=== PATIENT | female | born 1945 | race Caucasian/White ===

== ENCOUNTER 2021-09-02 08:39 | Outpatient (CLI) | payer MEDICARE | END 2021-09-02 08:40 | disposition home or self-care (01) | LOC: CSHWCC 08:39 | PROVIDERS: ATTEND Nurse Practitioner Family | DX: S81.802D Unspecified open wound, left lower leg, subsequent encounter (principal); R60.0 Localized edema | CPT/HCPCS: 11042; 99203; G0463 ==

== ENCOUNTER 2021-09-06 10:59 | Outpatient (CLI) | payer MEDICARE | END 2021-09-06 11:00 | disposition home or self-care (01) | LOC: CSHMAMMO 10:59 | PROVIDERS: ATTEND Internal Medicine | DX: Z12.31 Encounter for screening mammogram for malignant neoplasm of breast (principal); L97.322 Non-pressure chronic ulcer of left ankle with fat layer exposed; Z91.89 Other specified personal risk factors, not elsewhere classified | CPT/HCPCS: 77063; 77067; 93922 ==

== ENCOUNTER 2021-09-10 08:28 | Outpatient (CLI) | payer MEDICARE | END 2021-09-10 08:29 | disposition home or self-care (01) | LOC: CSHWCC 08:28 | PROVIDERS: ATTEND Nurse Practitioner Family | DX: S81.802D Unspecified open wound, left lower leg, subsequent encounter (principal); R60.0 Localized edema | CPT/HCPCS: 29581; 97139; G0463; 99213 ==

== ENCOUNTER 2021-09-17 12:49 | Outpatient (CLI) | payer MEDICARE | END 2021-09-17 12:50 | disposition home or self-care (01) | LOC: CSHWCC 12:49 | PROVIDERS: ATTEND Nurse Practitioner Family | DX: S81.802D Unspecified open wound, left lower leg, subsequent encounter (principal); R60.0 Localized edema | CPT/HCPCS: 29581; 97607; 99212; G0463 ==

== ENCOUNTER 2021-09-24 12:50 | Outpatient (CLI) | payer MEDICARE | END 2021-09-24 12:51 | disposition home or self-care (01) | LOC: CSHWCC 12:50 | PROVIDERS: ATTEND Nurse Practitioner Family | DX: S81.802D Unspecified open wound, left lower leg, subsequent encounter (principal); R60.0 Localized edema | CPT/HCPCS: 99212; G0463 ==

== ENCOUNTER 2021-10-01 10:59 | Outpatient (CLI) | payer MEDICARE | END 2021-10-01 11:00 | disposition home or self-care (01) | LOC: CSHWCC 10:59 | PROVIDERS: ATTEND Nurse Practitioner Family | DX: S81.802D Unspecified open wound, left lower leg, subsequent encounter (principal); R60.0 Localized edema | CPT/HCPCS: 97139; G0463; 99213 ==

== ENCOUNTER 2021-10-04 10:58 | Outpatient (CLI) | payer MEDICARE | END 2021-10-04 10:59 | disposition home or self-care (01) | LOC: CSHWCC 10:58 | PROVIDERS: ATTEND Nurse Practitioner Family | DX: S81.802D Unspecified open wound, left lower leg, subsequent encounter (principal); R60.0 Localized edema ==

== ENCOUNTER 2021-10-08 09:33 | Outpatient (CLI) | payer MEDICARE | END 2021-10-08 09:34 | disposition home or self-care (01) | LOC: CSHWCC 09:33 | PROVIDERS: ATTEND Nurse Practitioner Family | DX: S81.802D Unspecified open wound, left lower leg, subsequent encounter (principal); R60.0 Localized edema | CPT/HCPCS: 11042 ==

== ENCOUNTER 2021-10-16 11:22 | Outpatient (CLI) | payer MEDICARE | END 2021-10-16 11:23 | disposition home or self-care (01) | LOC: CSHWCC 11:22 | PROVIDERS: ATTEND Nurse Practitioner Family | DX: S81.802A Unspecified open wound, left lower leg, initial encounter (principal); R60.0 Localized edema; L97.829 Non-pressure chronic ulcer of other part of left lower leg with unspecified severity | CPT/HCPCS: 11300; 87070; 87077; 87186; 87205; 97139; G0463; 88305; 88312; 88342; 99212 ==

== ENCOUNTER 2021-10-21 10:41 | Outpatient (CLI) | payer MEDICARE | END 2021-10-21 10:42 | disposition home or self-care (01) | LOC: CSHWCC 10:41 | PROVIDERS: ATTEND Nurse Practitioner Family | DX: S81.802D Unspecified open wound, left lower leg, subsequent encounter (principal); R60.0 Localized edema ==

== ENCOUNTER 2021-10-24 08:58 | Outpatient (CLI) | payer MEDICARE | END 2021-10-24 08:59 | disposition home or self-care (01) | LOC: CSHWCC 08:58 | PROVIDERS: ATTEND Nurse Practitioner Family | DX: S81.802D Unspecified open wound, left lower leg, subsequent encounter (principal); R60.0 Localized edema ==

== ENCOUNTER 2021-10-28 13:28 | Outpatient (CLI) | payer MEDICARE | END 2021-10-28 13:29 | disposition home or self-care (01) | LOC: CSHWCC 13:28 | PROVIDERS: ATTEND Nurse Practitioner Family | DX: S81.802D Unspecified open wound, left lower leg, subsequent encounter (principal); R60.0 Localized edema ==

== ENCOUNTER 2021-10-31 09:19 | Outpatient (CLI) | payer MEDICARE | END 2021-10-31 09:20 | disposition home or self-care (01) | LOC: CSHWCC 09:19 | PROVIDERS: ATTEND Nurse Practitioner Family | DX: S81.802D Unspecified open wound, left lower leg, subsequent encounter (principal); R60.0 Localized edema ==

== ENCOUNTER 2021-11-04 09:53 | Outpatient (CLI) | payer MEDICARE | END 2021-11-04 09:54 | disposition home or self-care (01) | LOC: CSHWCC 09:53 | PROVIDERS: ATTEND Nurse Practitioner Family | DX: S81.802D Unspecified open wound, left lower leg, subsequent encounter (principal); R60.0 Localized edema ==

== ENCOUNTER 2021-11-07 08:22 | Outpatient (CLI) | payer MEDICARE | END 2021-11-07 08:23 | disposition home or self-care (01) | LOC: CSHWCC 08:22 | PROVIDERS: ATTEND Nurse Practitioner Family | DX: S81.802D Unspecified open wound, left lower leg, subsequent encounter (principal); R60.0 Localized edema ==

== ENCOUNTER 2021-11-11 14:45 | Outpatient (CLI) | payer MEDICARE | END 2021-11-11 14:46 | disposition home or self-care (01) | LOC: CSHWCC 14:45 | PROVIDERS: ATTEND Nurse Practitioner Family | DX: S81.802D Unspecified open wound, left lower leg, subsequent encounter (principal); R60.0 Localized edema | CPT/HCPCS: 29581 ==

== ENCOUNTER 2021-11-14 12:55 | Outpatient (CLI) | payer MEDICARE | END 2021-11-14 12:56 | disposition home or self-care (01) | LOC: CSHWCC 12:55 | PROVIDERS: ATTEND Nurse Practitioner Family | DX: S81.802D Unspecified open wound, left lower leg, subsequent encounter (principal); R60.0 Localized edema | CPT/HCPCS: 29581 ==

== ENCOUNTER 2021-11-18 11:15 | Outpatient (CLI) | payer MEDICARE | END 2021-11-18 11:16 | disposition home or self-care (01) | LOC: CSHWCC 11:15 | PROVIDERS: ATTEND Nurse Practitioner Family | DX: S81.802D Unspecified open wound, left lower leg, subsequent encounter (principal); R60.0 Localized edema ==

== ENCOUNTER 2021-11-21 09:49 | Outpatient (CLI) | payer MEDICARE | END 2021-11-21 09:50 | disposition home or self-care (01) | LOC: CSHWCC 09:49 | PROVIDERS: ATTEND Nurse Practitioner Family | DX: S81.802D Unspecified open wound, left lower leg, subsequent encounter (principal); R60.0 Localized edema ==

== ENCOUNTER 2021-11-25 14:53 | Outpatient (CLI) | payer MEDICARE | END 2021-11-25 14:54 | disposition home or self-care (01) | LOC: CSHWCC 14:53 | PROVIDERS: ATTEND Nurse Practitioner Family | DX: S81.802D Unspecified open wound, left lower leg, subsequent encounter (principal); R60.0 Localized edema | CPT/HCPCS: 29581 ==

== ENCOUNTER 2021-11-28 10:58 | Outpatient (CLI) | payer MEDICARE | END 2021-11-28 10:59 | disposition home or self-care (01) | LOC: CSHWCC 10:58 | PROVIDERS: ATTEND Nurse Practitioner Family | DX: S81.801D Unspecified open wound, right lower leg, subsequent encounter (principal); R60.0 Localized edema ==

== ENCOUNTER 2021-12-05 10:22 | Outpatient (CLI) | payer MEDICARE | END 2021-12-05 10:23 | disposition home or self-care (01) | LOC: CSHWCC 10:22 | PROVIDERS: ATTEND Family Medicine | DX: S81.802D Unspecified open wound, left lower leg, subsequent encounter (principal); R60.0 Localized edema | CPT/HCPCS: 99213; G0463 ==

== ENCOUNTER 2021-12-09 15:02 | Outpatient (CLI) | payer MEDICARE | END 2021-12-09 15:03 | disposition home or self-care (01) | LOC: CSHWCC 15:02 | PROVIDERS: ATTEND Preventive Medicine Undersea and Hyperbaric Medicine | DX: S81.802D Unspecified open wound, left lower leg, subsequent encounter (principal); R60.0 Localized edema | CPT/HCPCS: 29581 ==

== ENCOUNTER 2021-12-12 09:28 | Outpatient (CLI) | payer MEDICARE | END 2021-12-12 09:29 | disposition home or self-care (01) | LOC: CSHWCC 09:28 | PROVIDERS: ATTEND Preventive Medicine Undersea and Hyperbaric Medicine | DX: S81.802D Unspecified open wound, left lower leg, subsequent encounter (principal); R60.0 Localized edema ==

== ENCOUNTER 2021-12-17 15:05 | Outpatient (CLI) | payer MEDICARE | END 2021-12-17 15:06 | disposition home or self-care (01) | LOC: CSHWCC 15:05 | PROVIDERS: ATTEND Preventive Medicine Undersea and Hyperbaric Medicine | DX: S81.802D Unspecified open wound, left lower leg, subsequent encounter (principal); R60.0 Localized edema | CPT/HCPCS: 29581 ==

== ENCOUNTER 2021-12-20 09:36 | Outpatient (CLI) | payer MEDICARE | END 2021-12-20 09:37 | disposition home or self-care (01) | LOC: CSHWCC 09:36 | PROVIDERS: ATTEND Preventive Medicine Undersea and Hyperbaric Medicine | DX: S81.802D Unspecified open wound, left lower leg, subsequent encounter (principal); R60.0 Localized edema | CPT/HCPCS: 29581 ==

== ENCOUNTER 2021-12-24 13:42 | Outpatient (CLI) | payer MEDICARE | END 2021-12-24 13:43 | disposition home or self-care (01) | LOC: CSHWCC 13:42 | PROVIDERS: ATTEND Preventive Medicine Undersea and Hyperbaric Medicine | DX: S81.802D Unspecified open wound, left lower leg, subsequent encounter (principal); R60.0 Localized edema | CPT/HCPCS: 29581 ==

== ENCOUNTER 2021-12-27 09:31 | Outpatient (CLI) | payer MEDICARE | END 2021-12-27 09:32 | disposition home or self-care (01) | LOC: CSHWCC 09:31 | PROVIDERS: ATTEND Nurse Practitioner Family | DX: S81.802D Unspecified open wound, left lower leg, subsequent encounter (principal); R60.0 Localized edema ==

== ENCOUNTER 2022-01-03 09:55 | Outpatient (CLI) | payer MEDICARE | END 2022-01-03 09:56 | disposition home or self-care (01) | LOC: CSHWCC 09:55 | PROVIDERS: ATTEND Preventive Medicine Undersea and Hyperbaric Medicine | DX: S81.802D Unspecified open wound, left lower leg, subsequent encounter (principal); R60.0 Localized edema | CPT/HCPCS: 29581 ==

== ENCOUNTER 2022-01-07 13:13 | Outpatient (CLI) | payer MEDICARE | END 2022-01-07 13:14 | disposition home or self-care (01) | LOC: CSHWCC 13:13 | PROVIDERS: ATTEND Preventive Medicine Undersea and Hyperbaric Medicine | DX: S81.802D Unspecified open wound, left lower leg, subsequent encounter (principal); R60.0 Localized edema | CPT/HCPCS: 29581 ==

== ENCOUNTER 2022-01-17 09:11 | Outpatient (CLI) | payer MEDICARE | END 2022-01-17 09:12 | disposition home or self-care (01) | LOC: CSHWCC 09:11 | PROVIDERS: ATTEND Preventive Medicine Undersea and Hyperbaric Medicine | DX: I87.312 Chronic venous hypertension (idiopathic) with ulcer of left lower extremity (principal); L97.321 Non-pressure chronic ulcer of left ankle limited to breakdown of skin; R60.0 Localized edema | CPT/HCPCS: 97139; G0463; 99213 ==

== ENCOUNTER 2022-01-23 13:00 | Outpatient (CLI) | payer MEDICARE | END 2022-01-23 13:01 | disposition home or self-care (01) | LOC: CSHWCC 13:00 | PROVIDERS: ATTEND Preventive Medicine Undersea and Hyperbaric Medicine | DX: I87.312 Chronic venous hypertension (idiopathic) with ulcer of left lower extremity (principal); L97.321 Non-pressure chronic ulcer of left ankle limited to breakdown of skin; R60.0 Localized edema | CPT/HCPCS: 29581; 97139; G0463; 99213 ==

== ENCOUNTER 2022-01-28 08:27 | Outpatient (CLI) | payer MEDICARE | END 2022-01-28 08:28 | disposition home or self-care (01) | LOC: CSHWCC 08:27 | PROVIDERS: ATTEND Preventive Medicine Undersea and Hyperbaric Medicine | DX: I87.312 Chronic venous hypertension (idiopathic) with ulcer of left lower extremity (principal); L97.321 Non-pressure chronic ulcer of left ankle limited to breakdown of skin; R60.0 Localized edema | CPT/HCPCS: 29581 ==

== ENCOUNTER 2022-02-03 10:25 | Outpatient (CLI) | payer MEDICARE | END 2022-02-03 10:26 | disposition home or self-care (01) | LOC: CSHWCC 10:25 | PROVIDERS: ATTEND Nurse Practitioner Family | DX: I87.312 Chronic venous hypertension (idiopathic) with ulcer of left lower extremity (principal); L97.321 Non-pressure chronic ulcer of left ankle limited to breakdown of skin; R60.0 Localized edema | CPT/HCPCS: 15271; 29581; Q4196 ==

== ENCOUNTER 2022-02-06 13:30 | Outpatient (CLI) | payer MEDICARE | END 2022-02-06 13:31 | disposition home or self-care (01) | LOC: CSHWCC 13:30 | PROVIDERS: ATTEND Nurse Practitioner Family | DX: I87.312 Chronic venous hypertension (idiopathic) with ulcer of left lower extremity (principal); L97.321 Non-pressure chronic ulcer of left ankle limited to breakdown of skin; R60.0 Localized edema ==

== ENCOUNTER 2022-02-13 13:40 | Outpatient (CLI) | payer MEDICARE | END 2022-02-13 13:41 | disposition home or self-care (01) | LOC: CSHWCC 13:40 | PROVIDERS: ATTEND Nurse Practitioner Family | DX: I87.312 Chronic venous hypertension (idiopathic) with ulcer of left lower extremity (principal); L97.321 Non-pressure chronic ulcer of left ankle limited to breakdown of skin; R60.0 Localized edema | CPT/HCPCS: 97139; G0463; 99213 ==

== ENCOUNTER 2022-02-20 09:23 | Outpatient (CLI) | payer MEDICARE | END 2022-02-20 09:24 | disposition home or self-care (01) | LOC: CSHWCC 09:23 | PROVIDERS: ATTEND Nurse Practitioner Family | DX: I87.312 Chronic venous hypertension (idiopathic) with ulcer of left lower extremity (principal); L97.321 Non-pressure chronic ulcer of left ankle limited to breakdown of skin; R60.0 Localized edema ==

== ENCOUNTER 2022-02-24 10:19 | Outpatient (CLI) | payer MEDICARE | END 2022-02-24 10:20 | disposition home or self-care (01) | LOC: CSHWCC 10:19 | PROVIDERS: ATTEND Nurse Practitioner Family | DX: I87.312 Chronic venous hypertension (idiopathic) with ulcer of left lower extremity (principal); L97.321 Non-pressure chronic ulcer of left ankle limited to breakdown of skin; L97.829 Non-pressure chronic ulcer of other part of left lower leg with unspecified severity; R60.0 Localized edema | CPT/HCPCS: 15271; 97139; Q4133 ==

== ENCOUNTER 2022-02-27 08:20 | Outpatient (CLI) | payer MEDICARE | END 2022-02-27 08:21 | disposition home or self-care (01) | LOC: CSHWCC 08:20 | PROVIDERS: ATTEND Nurse Practitioner Family | DX: I87.312 Chronic venous hypertension (idiopathic) with ulcer of left lower extremity (principal); L97.321 Non-pressure chronic ulcer of left ankle limited to breakdown of skin; L97.829 Non-pressure chronic ulcer of other part of left lower leg with unspecified severity; R60.0 Localized edema | CPT/HCPCS: 97139; G0463; 99213 ==

== ENCOUNTER 2022-03-03 11:07 | Outpatient (CLI) | payer MEDICARE | END 2022-03-03 11:08 | disposition home or self-care (01) | LOC: CSHWCC 11:07 | PROVIDERS: ATTEND Nurse Practitioner Family | DX: I87.312 Chronic venous hypertension (idiopathic) with ulcer of left lower extremity (principal); L97.829 Non-pressure chronic ulcer of other part of left lower leg with unspecified severity; R60.0 Localized edema | CPT/HCPCS: 99213; G0463 ==

== ENCOUNTER 2022-03-05 08:09 | Outpatient (CLI) | payer MEDICARE | END 2022-03-05 08:10 | disposition home or self-care (01) | LOC: CSHWCC 08:09 | PROVIDERS: ATTEND Nurse Practitioner Family | DX: I87.312 Chronic venous hypertension (idiopathic) with ulcer of left lower extremity (principal); L97.321 Non-pressure chronic ulcer of left ankle limited to breakdown of skin; L97.829 Non-pressure chronic ulcer of other part of left lower leg with unspecified severity; R60.0 Localized edema ==

== ENCOUNTER 2022-03-10 13:25 | Outpatient (CLI) | payer MEDICARE | END 2022-03-10 13:26 | disposition home or self-care (01) | LOC: CSHWCC 13:25 | PROVIDERS: ATTEND Nurse Practitioner Family | DX: I87.312 Chronic venous hypertension (idiopathic) with ulcer of left lower extremity (principal); L97.321 Non-pressure chronic ulcer of left ankle limited to breakdown of skin; L97.829 Non-pressure chronic ulcer of other part of left lower leg with unspecified severity; R60.0 Localized edema ==

== ENCOUNTER 2022-03-13 11:26 | Outpatient (CLI) | payer MEDICARE | END 2022-03-13 11:27 | disposition home or self-care (01) | LOC: CSHWCC 11:26 | PROVIDERS: ATTEND Nurse Practitioner Family | DX: I87.312 Chronic venous hypertension (idiopathic) with ulcer of left lower extremity (principal); L97.321 Non-pressure chronic ulcer of left ankle limited to breakdown of skin; R60.0 Localized edema; L97.829 Non-pressure chronic ulcer of other part of left lower leg with unspecified severity | CPT/HCPCS: 97139; G0463; 99213 ==

== ENCOUNTER 2022-03-20 08:33 | Outpatient (CLI) | payer MEDICARE | END 2022-03-20 08:34 | disposition home or self-care (01) | LOC: CSHWCC 08:33 | PROVIDERS: ATTEND Nurse Practitioner Family | DX: I87.312 Chronic venous hypertension (idiopathic) with ulcer of left lower extremity (principal); L97.321 Non-pressure chronic ulcer of left ankle limited to breakdown of skin; L97.829 Non-pressure chronic ulcer of other part of left lower leg with unspecified severity; R60.0 Localized edema ==

== ENCOUNTER 2022-03-27 10:33 | Outpatient (CLI) | payer MEDICARE | END 2022-03-27 10:34 | disposition home or self-care (01) | LOC: CSHWCC 10:33 | PROVIDERS: ATTEND Nurse Practitioner Family | DX: I87.312 Chronic venous hypertension (idiopathic) with ulcer of left lower extremity (principal); L97.321 Non-pressure chronic ulcer of left ankle limited to breakdown of skin; L97.829 Non-pressure chronic ulcer of other part of left lower leg with unspecified severity; R60.0 Localized edema ==

== ENCOUNTER 2022-04-03 10:51 | Outpatient (CLI) | payer MEDICARE | END 2022-04-03 10:52 | disposition home or self-care (01) | LOC: CSHWCC 10:51 | PROVIDERS: ATTEND Nurse Practitioner Family | DX: I87.312 Chronic venous hypertension (idiopathic) with ulcer of left lower extremity (principal); L97.829 Non-pressure chronic ulcer of other part of left lower leg with unspecified severity; L97.321 Non-pressure chronic ulcer of left ankle limited to breakdown of skin; R60.0 Localized edema ==

== ENCOUNTER 2022-04-10 11:16 | Outpatient (CLI) | payer MEDICARE | END 2022-04-10 11:17 | disposition home or self-care (01) | LOC: CSHWCC 11:16 | PROVIDERS: ATTEND Nurse Practitioner Family | DX: I87.312 Chronic venous hypertension (idiopathic) with ulcer of left lower extremity (principal); L97.321 Non-pressure chronic ulcer of left ankle limited to breakdown of skin; L97.829 Non-pressure chronic ulcer of other part of left lower leg with unspecified severity; R60.0 Localized edema ==

== ENCOUNTER 2022-04-17 08:53 | Outpatient (CLI) | payer MEDICARE | END 2022-04-17 08:54 | disposition home or self-care (01) | LOC: CSHWCC 08:53 | PROVIDERS: ATTEND Nurse Practitioner Family | DX: I87.312 Chronic venous hypertension (idiopathic) with ulcer of left lower extremity (principal); L97.829 Non-pressure chronic ulcer of other part of left lower leg with unspecified severity; L97.321 Non-pressure chronic ulcer of left ankle limited to breakdown of skin; R60.0 Localized edema | CPT/HCPCS: 15271; Q4133 ==

== ENCOUNTER 2022-04-21 12:51 | Outpatient (CLI) | payer MEDICARE | END 2022-04-21 12:52 | disposition home or self-care (01) | LOC: CSHWCC 12:51 | PROVIDERS: ATTEND Nurse Practitioner Family | DX: I87.312 Chronic venous hypertension (idiopathic) with ulcer of left lower extremity (principal); L97.829 Non-pressure chronic ulcer of other part of left lower leg with unspecified severity; L97.321 Non-pressure chronic ulcer of left ankle limited to breakdown of skin; R60.0 Localized edema | CPT/HCPCS: 29581; 93923 ==

== ENCOUNTER 2022-04-24 11:10 | Outpatient (CLI) | payer MEDICARE | END 2022-04-24 11:11 | disposition home or self-care (01) | LOC: CSHWCC 11:10 | PROVIDERS: ATTEND Nurse Practitioner Family | DX: I87.312 Chronic venous hypertension (idiopathic) with ulcer of left lower extremity (principal); L97.321 Non-pressure chronic ulcer of left ankle limited to breakdown of skin; L97.829 Non-pressure chronic ulcer of other part of left lower leg with unspecified severity; R60.0 Localized edema ==

== ENCOUNTER 2022-04-28 13:15 | Outpatient (CLI) | payer MEDICARE | END 2022-04-28 13:16 | disposition home or self-care (01) | LOC: CSHWCC 13:15 | PROVIDERS: ATTEND Nurse Practitioner Family | DX: I87.312 Chronic venous hypertension (idiopathic) with ulcer of left lower extremity (principal); L97.321 Non-pressure chronic ulcer of left ankle limited to breakdown of skin; L97.829 Non-pressure chronic ulcer of other part of left lower leg with unspecified severity; R60.0 Localized edema | CPT/HCPCS: 99213; G0463 ==

== ENCOUNTER 2022-05-01 13:38 | Outpatient (CLI) | payer MEDICARE, OTHER | END 2022-05-01 13:39 | disposition home or self-care (01) | LOC: CSHWCC 13:38 | PROVIDERS: ATTEND Nurse Practitioner Family | DX: I87.312 Chronic venous hypertension (idiopathic) with ulcer of left lower extremity (principal); L97.321 Non-pressure chronic ulcer of left ankle limited to breakdown of skin; L97.829 Non-pressure chronic ulcer of other part of left lower leg with unspecified severity; R60.0 Localized edema | CPT/HCPCS: 99213; G0463 ==

== ENCOUNTER 2022-05-05 13:52 | Outpatient (CLI) | payer MEDICARE, OTHER | END 2022-05-05 13:53 | disposition home or self-care (01) | LOC: CSHWCC 13:52 | PROVIDERS: ATTEND Nurse Practitioner Family | DX: I87.312 Chronic venous hypertension (idiopathic) with ulcer of left lower extremity (principal); L97.321 Non-pressure chronic ulcer of left ankle limited to breakdown of skin; L97.829 Non-pressure chronic ulcer of other part of left lower leg with unspecified severity; R60.0 Localized edema | CPT/HCPCS: 99213; G0463 ==

== ENCOUNTER 2022-05-08 12:54 | Outpatient (CLI) | payer MEDICARE, OTHER | END 2022-05-08 12:55 | disposition home or self-care (01) | LOC: CSHWCC 12:54 | PROVIDERS: ATTEND Nurse Practitioner Family | DX: I87.312 Chronic venous hypertension (idiopathic) with ulcer of left lower extremity (principal); L97.321 Non-pressure chronic ulcer of left ankle limited to breakdown of skin; L97.829 Non-pressure chronic ulcer of other part of left lower leg with unspecified severity; R60.0 Localized edema ==

== ENCOUNTER 2022-05-20 15:17 | Outpatient (CLI) | payer MEDICARE, OTHER | END 2022-05-20 15:18 | disposition home or self-care (01) | LOC: CSHWCC 15:17 | PROVIDERS: ATTEND Nurse Practitioner Family | DX: I87.312 Chronic venous hypertension (idiopathic) with ulcer of left lower extremity (principal); L97.321 Non-pressure chronic ulcer of left ankle limited to breakdown of skin; R60.0 Localized edema ==

== ENCOUNTER 2022-05-27 08:57 | Outpatient (CLI) | payer MEDICARE, OTHER | END 2022-05-27 08:58 | disposition home or self-care (01) | LOC: CSHWCC 08:57 | PROVIDERS: ATTEND Nurse Practitioner Family | DX: I87.312 Chronic venous hypertension (idiopathic) with ulcer of left lower extremity (principal); L97.321 Non-pressure chronic ulcer of left ankle limited to breakdown of skin; R60.0 Localized edema | CPT/HCPCS: 97139; G0463; 99213 ==

== ENCOUNTER 2022-06-03 12:47 | Outpatient (CLI) | payer MEDICARE, OTHER | END 2022-06-03 12:48 | disposition home or self-care (01) | LOC: CSHWCC 12:47 | PROVIDERS: ATTEND Nurse Practitioner Family | DX: I87.312 Chronic venous hypertension (idiopathic) with ulcer of left lower extremity (principal); L97.321 Non-pressure chronic ulcer of left ankle limited to breakdown of skin; R60.0 Localized edema | CPT/HCPCS: 97139; G0463; 99213 ==

== ENCOUNTER 2022-06-10 12:42 | Outpatient (CLI) | payer MEDICARE, OTHER | END 2022-06-10 12:43 | disposition home or self-care (01) | LOC: CSHWCC 12:42 | PROVIDERS: ATTEND Nurse Practitioner Family | DX: I87.312 Chronic venous hypertension (idiopathic) with ulcer of left lower extremity (principal); L97.321 Non-pressure chronic ulcer of left ankle limited to breakdown of skin; R60.0 Localized edema | CPT/HCPCS: 97139; G0463; 99213 ==

== ENCOUNTER 2022-06-17 13:03 | Outpatient (CLI) | payer MEDICARE, OTHER | END 2022-06-17 13:04 | disposition home or self-care (01) | LOC: CSHWCC 13:03 | PROVIDERS: ATTEND Nurse Practitioner Family | DX: I87.312 Chronic venous hypertension (idiopathic) with ulcer of left lower extremity (principal); L97.321 Non-pressure chronic ulcer of left ankle limited to breakdown of skin; R60.0 Localized edema | CPT/HCPCS: 99213; G0463 ==

== ENCOUNTER 2022-06-24 11:00 | Outpatient (CLI) | payer MEDICARE, OTHER | END 2022-06-24 11:01 | disposition home or self-care (01) | LOC: CSHWCC 11:00 | PROVIDERS: ATTEND Nurse Practitioner Family | DX: I87.312 Chronic venous hypertension (idiopathic) with ulcer of left lower extremity (principal); L97.321 Non-pressure chronic ulcer of left ankle limited to breakdown of skin; R60.0 Localized edema | CPT/HCPCS: 99213; G0463 ==

== ENCOUNTER 2022-07-10 13:53 | Outpatient (CLI) | payer MEDICARE, OTHER | END 2022-07-10 13:54 | disposition home or self-care (01) | LOC: CSHWCC 13:53 | PROVIDERS: ATTEND Nurse Practitioner Family | DX: I87.312 Chronic venous hypertension (idiopathic) with ulcer of left lower extremity (principal); L97.321 Non-pressure chronic ulcer of left ankle limited to breakdown of skin; R60.0 Localized edema ==

== ENCOUNTER 2022-07-24 13:03 | Outpatient (CLI) | payer MEDICARE, OTHER | END 2022-07-24 13:04 | disposition home or self-care (01) | LOC: CSHWCC 13:03 | PROVIDERS: ATTEND Nurse Practitioner Family | DX: R60.0 Localized edema (principal); I87.312 Chronic venous hypertension (idiopathic) with ulcer of left lower extremity; L97.321 Non-pressure chronic ulcer of left ankle limited to breakdown of skin | CPT/HCPCS: 87070; 87205 ==

== ENCOUNTER 2022-08-01 12:41 | Outpatient (CLI) | payer MEDICARE ==
[~2022-08-01 12:41] MED LIST: Iopamidol 300 61% 100 ML VIAL FS ONE
== END 2022-08-01 12:42 | disposition home or self-care (01) ==
LOC: CSHCT 12:41
PROVIDERS: ATTEND Nurse Practitioner Family
DX: I87.312 Chronic venous hypertension (idiopathic) with ulcer of left lower extremity (principal); L97.321 Non-pressure chronic ulcer of left ankle limited to breakdown of skin
CPT/HCPCS: Q9967

== ENCOUNTER 2022-08-07 09:33 | Outpatient (CLI) | payer MEDICARE, OTHER | END 2022-08-07 09:34 | disposition home or self-care (01) | LOC: CSHWCC 09:33 | PROVIDERS: ATTEND Nurse Practitioner Family | DX: R60.0 Localized edema (principal); I87.312 Chronic venous hypertension (idiopathic) with ulcer of left lower extremity; L97.321 Non-pressure chronic ulcer of left ankle limited to breakdown of skin | CPT/HCPCS: 97139; G0463; 99213 ==

== ENCOUNTER 2022-08-22 09:38 | Outpatient (CLI) | payer MEDICARE, OTHER | END 2022-08-22 09:39 | disposition home or self-care (01) | LOC: CSHWCC 09:38 | PROVIDERS: ATTEND Nurse Practitioner Family | DX: R60.0 Localized edema (principal); I87.312 Chronic venous hypertension (idiopathic) with ulcer of left lower extremity; L97.321 Non-pressure chronic ulcer of left ankle limited to breakdown of skin | CPT/HCPCS: 97139; G0463; 99213 ==

== ENCOUNTER 2022-11-10 14:23 | Outpatient (CLI) | payer MEDICARE, OTHER | END 2022-11-10 14:24 | disposition home or self-care (01) | LOC: CSHWCC 14:23 | PROVIDERS: ATTEND Nurse Practitioner Family | DX: R60.0 Localized edema (principal); I87.312 Chronic venous hypertension (idiopathic) with ulcer of left lower extremity; L97.321 Non-pressure chronic ulcer of left ankle limited to breakdown of skin | CPT/HCPCS: 97597 ==

== ENCOUNTER 2022-12-08 10:58 | Outpatient (CLI) | payer MEDICARE, OTHER | END 2022-12-08 10:59 | disposition home or self-care (01) | LOC: CSHWCC 10:58 | PROVIDERS: ATTEND Nurse Practitioner Family | DX: I87.312 Chronic venous hypertension (idiopathic) with ulcer of left lower extremity (principal); L97.321 Non-pressure chronic ulcer of left ankle limited to breakdown of skin; R60.0 Localized edema | CPT/HCPCS: 11042 ==

== ENCOUNTER 2023-01-08 07:59 | Outpatient (CLI) | payer MEDICARE, OTHER | END 2023-01-08 08:00 | disposition home or self-care (01) | LOC: CSHWCC 07:59 | PROVIDERS: ATTEND Preventive Medicine Undersea and Hyperbaric Medicine | DX: I87.312 Chronic venous hypertension (idiopathic) with ulcer of left lower extremity (principal); L97.321 Non-pressure chronic ulcer of left ankle limited to breakdown of skin; R60.9 Edema, unspecified | CPT/HCPCS: 15271; 29581 ==

== ENCOUNTER 2023-01-15 10:23 | Outpatient (CLI) | payer MEDICARE, OTHER | END 2023-01-15 10:24 | disposition home or self-care (01) | LOC: CSHWCC 10:23 | PROVIDERS: ATTEND Preventive Medicine Undersea and Hyperbaric Medicine | DX: I87.312 Chronic venous hypertension (idiopathic) with ulcer of left lower extremity (principal); L97.321 Non-pressure chronic ulcer of left ankle limited to breakdown of skin; R60.9 Edema, unspecified | CPT/HCPCS: 29581 ==

== ENCOUNTER 2023-01-21 10:21 | Outpatient (CLI) | payer MEDICARE | END 2023-01-21 10:22 | disposition home or self-care (01) | LOC: CSHMAMMO 10:21 | PROVIDERS: ATTEND Internal Medicine | DX: Z12.31 Encounter for screening mammogram for malignant neoplasm of breast (principal); Z13.820 Encounter for screening for osteoporosis; M81.0 Age-related osteoporosis without current pathological fracture; Z91.89 Other specified personal risk factors, not elsewhere classified | CPT/HCPCS: 77063; 77067; 77080 ==

== ENCOUNTER 2023-01-22 10:29 | Outpatient (CLI) | payer MEDICARE | END 2023-01-22 10:30 | disposition home or self-care (01) | LOC: CSHWCC 10:29 | PROVIDERS: ATTEND Nurse Practitioner Pediatrics | DX: I87.312 Chronic venous hypertension (idiopathic) with ulcer of left lower extremity (principal); L97.321 Non-pressure chronic ulcer of left ankle limited to breakdown of skin | CPT/HCPCS: 29581; 97597 ==

== ENCOUNTER 2023-01-29 11:23 | Outpatient (CLI) | payer MEDICARE | END 2023-01-29 11:24 | disposition home or self-care (01) | LOC: CSHWCC 11:23 | PROVIDERS: ATTEND Preventive Medicine Undersea and Hyperbaric Medicine | DX: I87.312 Chronic venous hypertension (idiopathic) with ulcer of left lower extremity (principal); L97.321 Non-pressure chronic ulcer of left ankle limited to breakdown of skin | CPT/HCPCS: 97597 ==

== ENCOUNTER 2023-02-12 10:57 | Outpatient (CLI) | payer MEDICARE | END 2023-02-12 10:58 | disposition home or self-care (01) | LOC: CSHWCC 10:57 | PROVIDERS: ATTEND Physician Assistant | DX: L97.222 Non-pressure chronic ulcer of left calf with fat layer exposed (principal) | CPT/HCPCS: 97597 ==

== ENCOUNTER 2023-02-26 11:09 | Outpatient (CLI) | payer MEDICARE | END 2023-02-26 11:10 | disposition home or self-care (01) | LOC: CSHWCC 11:09 | PROVIDERS: ATTEND Physician Assistant | DX: L97.222 Non-pressure chronic ulcer of left calf with fat layer exposed (principal) | CPT/HCPCS: 97597 ==

== ENCOUNTER 2023-03-17 09:46 | Outpatient (CLI) | payer MEDICARE | END 2023-03-17 09:47 | disposition home or self-care (01) | LOC: CSHWCC 09:46 | PROVIDERS: ATTEND Physician Assistant | DX: L97.222 Non-pressure chronic ulcer of left calf with fat layer exposed (principal) | CPT/HCPCS: 99214; G0463 ==

== ENCOUNTER 2023-03-25 09:15 | Outpatient (CLI) | payer MEDICARE | END 2023-03-25 09:16 | disposition home or self-care (01) | LOC: CSHWCC 09:15 | PROVIDERS: ATTEND Physician Assistant | DX: L97.222 Non-pressure chronic ulcer of left calf with fat layer exposed (principal) | CPT/HCPCS: 99212; G0463 ==

== ENCOUNTER → 2023-04-22 | Outpatient (CLI) | payer MEDICARE | LOC: CSHWCC 13:00 | PROVIDERS: ATTEND Preventive Medicine Undersea and Hyperbaric Medicine | DX: L97.222 Non-pressure chronic ulcer of left calf with fat layer exposed (principal) | CPT/HCPCS: 99213; G0463 ==

== ENCOUNTER 2023-04-29 10:50 | Outpatient (CLI) | payer MEDICARE | END 2023-04-29 10:51 | disposition home or self-care (01) | LOC: CSHWCC 10:50 | PROVIDERS: ATTEND Preventive Medicine Undersea and Hyperbaric Medicine | DX: L97.222 Non-pressure chronic ulcer of left calf with fat layer exposed (principal) | CPT/HCPCS: 99213; G0463 ==

== ENCOUNTER 2023-05-08 09:26 | Outpatient (CLI) | payer MEDICARE | END 2023-05-08 09:27 | disposition home or self-care (01) | LOC: CSHWCC 09:26 | PROVIDERS: ATTEND Physician Assistant | DX: L97.222 Non-pressure chronic ulcer of left calf with fat layer exposed (principal) | CPT/HCPCS: 99213; G0463 ==

== ENCOUNTER 2023-05-15 12:23 | Outpatient (CLI) | payer MEDICARE | END 2023-05-15 12:24 | disposition home or self-care (01) | LOC: CSHWCC 12:23 | PROVIDERS: ATTEND Nurse Practitioner Family | DX: I87.312 Chronic venous hypertension (idiopathic) with ulcer of left lower extremity (principal); L97.222 Non-pressure chronic ulcer of left calf with fat layer exposed; D75.81 Myelofibrosis | CPT/HCPCS: 11042 ==

== ENCOUNTER 2023-05-29 11:13 | Outpatient (CLI) | payer MEDICARE | END 2023-05-29 11:14 | disposition home or self-care (01) | LOC: CSHWCC 11:13 | PROVIDERS: ATTEND Nurse Practitioner Family | DX: I87.312 Chronic venous hypertension (idiopathic) with ulcer of left lower extremity (principal); L97.222 Non-pressure chronic ulcer of left calf with fat layer exposed; D75.81 Myelofibrosis | CPT/HCPCS: 11042 ==

== ENCOUNTER 2023-06-05 12:02 | Outpatient (CLI) | payer MEDICARE | END 2023-06-05 12:03 | disposition home or self-care (01) | LOC: CSHWCC 12:02 | PROVIDERS: ATTEND Nurse Practitioner Family | DX: I87.312 Chronic venous hypertension (idiopathic) with ulcer of left lower extremity (principal); L97.222 Non-pressure chronic ulcer of left calf with fat layer exposed; D75.81 Myelofibrosis | CPT/HCPCS: 11042 ==

== ENCOUNTER 2023-06-19 09:08 | Outpatient (CLI) | payer MEDICARE | END 2023-06-19 09:09 | disposition home or self-care (01) | LOC: CSHWCC 09:08 | PROVIDERS: ATTEND Nurse Practitioner Family | DX: I87.312 Chronic venous hypertension (idiopathic) with ulcer of left lower extremity (principal); L97.222 Non-pressure chronic ulcer of left calf with fat layer exposed; D75.81 Myelofibrosis | CPT/HCPCS: 15271; Q4133 ==

== ENCOUNTER 2023-08-20 09:40 | Outpatient (CLI) | payer MEDICARE, OTHER | END 2023-08-20 09:41 | disposition home or self-care (01) | LOC: CSHWCC 09:40 | PROVIDERS: ATTEND Nurse Practitioner Family | DX: I87.312 Chronic venous hypertension (idiopathic) with ulcer of left lower extremity (principal); L97.222 Non-pressure chronic ulcer of left calf with fat layer exposed; D47.3 Essential (hemorrhagic) thrombocythemia; M06.9 Rheumatoid arthritis, unspecified | CPT/HCPCS: 11042 ==

== ENCOUNTER 2023-09-18 14:28 | Outpatient (CLI) | payer MEDICARE | END 2023-09-18 14:29 | disposition home or self-care (01) | LOC: CSHWCC 14:28 | PROVIDERS: ATTEND Nurse Practitioner Family | DX: I87.312 Chronic venous hypertension (idiopathic) with ulcer of left lower extremity (principal); L97.222 Non-pressure chronic ulcer of left calf with fat layer exposed; D47.3 Essential (hemorrhagic) thrombocythemia; M06.9 Rheumatoid arthritis, unspecified | CPT/HCPCS: 11042 ==

== ENCOUNTER 2023-10-02 11:24 | Outpatient (CLI) | payer MEDICARE | END 2023-10-02 11:25 | disposition home or self-care (01) | LOC: CSHWCC 11:24 | PROVIDERS: ATTEND Preventive Medicine Undersea and Hyperbaric Medicine | DX: I87.312 Chronic venous hypertension (idiopathic) with ulcer of left lower extremity (principal); L97.222 Non-pressure chronic ulcer of left calf with fat layer exposed; D47.3 Essential (hemorrhagic) thrombocythemia; M06.9 Rheumatoid arthritis, unspecified | CPT/HCPCS: 99213; G0463 ==

== ENCOUNTER 2023-10-16 11:56 | Outpatient (CLI) | payer MEDICARE | END 2023-10-16 11:57 | disposition home or self-care (01) | LOC: CSHWCC 11:56 | PROVIDERS: ATTEND Nurse Practitioner Family | DX: I87.312 Chronic venous hypertension (idiopathic) with ulcer of left lower extremity (principal); L97.222 Non-pressure chronic ulcer of left calf with fat layer exposed; D47.3 Essential (hemorrhagic) thrombocythemia; M06.9 Rheumatoid arthritis, unspecified | CPT/HCPCS: 11042; 87070; 87077; 87186; 87205; 99212; G0463 ==

== ENCOUNTER 2023-10-22 09:27 | Outpatient (CLI) | payer MEDICARE | END 2023-10-22 09:28 | disposition home or self-care (01) | LOC: CSHWCC 09:27 | PROVIDERS: ATTEND Nurse Practitioner Family | DX: I87.312 Chronic venous hypertension (idiopathic) with ulcer of left lower extremity (principal); L97.222 Non-pressure chronic ulcer of left calf with fat layer exposed; D47.3 Essential (hemorrhagic) thrombocythemia; M06.9 Rheumatoid arthritis, unspecified | CPT/HCPCS: 11042 ==

== ENCOUNTER 2023-10-29 10:19 | Outpatient (CLI) | payer MEDICARE | END 2023-10-29 10:20 | disposition home or self-care (01) | LOC: CSHWCC 10:19 | PROVIDERS: ATTEND Nurse Practitioner Family | DX: I87.312 Chronic venous hypertension (idiopathic) with ulcer of left lower extremity (principal); L97.222 Non-pressure chronic ulcer of left calf with fat layer exposed; D47.3 Essential (hemorrhagic) thrombocythemia; M06.9 Rheumatoid arthritis, unspecified | CPT/HCPCS: 11042 ==

== ENCOUNTER 2023-11-05 11:16 | Outpatient (CLI) | payer MEDICARE | END 2023-11-05 11:17 | disposition home or self-care (01) | LOC: CSHWCC 11:16 | PROVIDERS: ATTEND Nurse Practitioner Family | DX: I87.312 Chronic venous hypertension (idiopathic) with ulcer of left lower extremity (principal); L97.222 Non-pressure chronic ulcer of left calf with fat layer exposed; D47.3 Essential (hemorrhagic) thrombocythemia; M06.9 Rheumatoid arthritis, unspecified | CPT/HCPCS: 11042 ==

== ENCOUNTER 2023-12-03 11:04 | Outpatient (CLI) | payer MEDICARE | END 2023-12-03 11:05 | disposition home or self-care (01) | LOC: CSHWCC 11:04 | PROVIDERS: ATTEND Nurse Practitioner Family | DX: I87.312 Chronic venous hypertension (idiopathic) with ulcer of left lower extremity (principal); L97.222 Non-pressure chronic ulcer of left calf with fat layer exposed; D47.3 Essential (hemorrhagic) thrombocythemia; M06.9 Rheumatoid arthritis, unspecified | CPT/HCPCS: 11042 ==

== ENCOUNTER 2023-12-31 10:10 | Outpatient (CLI) | payer MEDICARE | END 2023-12-31 10:11 | disposition home or self-care (01) | LOC: CSHWCC 10:10 | PROVIDERS: ATTEND Nurse Practitioner Family | DX: I87.312 Chronic venous hypertension (idiopathic) with ulcer of left lower extremity (principal); L97.222 Non-pressure chronic ulcer of left calf with fat layer exposed; D47.3 Essential (hemorrhagic) thrombocythemia; M06.9 Rheumatoid arthritis, unspecified | CPT/HCPCS: 11042 ==

== ENCOUNTER 2024-01-06 15:57 | Outpatient (CLI) | payer MEDICARE | END 2024-01-06 15:58 | disposition home or self-care (01) | LOC: CSHWCC 15:57 | PROVIDERS: ATTEND Nurse Practitioner Family | DX: I87.312 Chronic venous hypertension (idiopathic) with ulcer of left lower extremity (principal); L97.222 Non-pressure chronic ulcer of left calf with fat layer exposed; D47.3 Essential (hemorrhagic) thrombocythemia; M06.9 Rheumatoid arthritis, unspecified | CPT/HCPCS: 11042 ==

== ENCOUNTER 2024-01-13 15:15 | Outpatient (CLI) | payer MEDICARE | END 2024-01-13 15:16 | disposition home or self-care (01) | LOC: CSHWCC 15:15 | PROVIDERS: ATTEND Nurse Practitioner Family | DX: I87.312 Chronic venous hypertension (idiopathic) with ulcer of left lower extremity (principal); L97.222 Non-pressure chronic ulcer of left calf with fat layer exposed; D47.3 Essential (hemorrhagic) thrombocythemia; M06.9 Rheumatoid arthritis, unspecified | CPT/HCPCS: 11042 ==

== ENCOUNTER 2024-01-19 15:20 | Outpatient (CLI) | payer MEDICARE | END 2024-01-19 15:21 | disposition home or self-care (01) | LOC: CSHWCC 15:20 | PROVIDERS: ATTEND Nurse Practitioner Family | DX: I87.312 Chronic venous hypertension (idiopathic) with ulcer of left lower extremity (principal); L97.222 Non-pressure chronic ulcer of left calf with fat layer exposed; D47.3 Essential (hemorrhagic) thrombocythemia; M06.9 Rheumatoid arthritis, unspecified | CPT/HCPCS: 11042 ==

== ENCOUNTER 2024-01-26 15:23 | Outpatient (CLI) | payer MEDICARE | END 2024-01-26 15:24 | disposition home or self-care (01) | LOC: CSHWCC 15:23 | PROVIDERS: ATTEND Nurse Practitioner Family | DX: I87.312 Chronic venous hypertension (idiopathic) with ulcer of left lower extremity (principal); L97.222 Non-pressure chronic ulcer of left calf with fat layer exposed; D47.3 Essential (hemorrhagic) thrombocythemia; M06.9 Rheumatoid arthritis, unspecified | CPT/HCPCS: 11042; 87070; 87077; 87186; 87205 ==

== ENCOUNTER 2024-02-02 14:02 | Outpatient (CLI) | payer MEDICARE | END 2024-02-02 14:03 | disposition home or self-care (01) | LOC: CSHWCC 14:02 | PROVIDERS: ATTEND Nurse Practitioner Family | DX: I87.312 Chronic venous hypertension (idiopathic) with ulcer of left lower extremity (principal); L97.222 Non-pressure chronic ulcer of left calf with fat layer exposed; D47.3 Essential (hemorrhagic) thrombocythemia; M06.9 Rheumatoid arthritis, unspecified | CPT/HCPCS: 11042 ==

== ENCOUNTER 2024-02-09 10:55 | Outpatient (CLI) | payer MEDICARE | END 2024-02-09 10:56 | disposition home or self-care (01) | LOC: CSHWCC 10:55 | PROVIDERS: ATTEND Nurse Practitioner Family | DX: I87.312 Chronic venous hypertension (idiopathic) with ulcer of left lower extremity (principal); L97.222 Non-pressure chronic ulcer of left calf with fat layer exposed; D47.3 Essential (hemorrhagic) thrombocythemia; M06.9 Rheumatoid arthritis, unspecified; L08.9 Local infection of the skin and subcutaneous tissue, unspecified | CPT/HCPCS: 11044 ==

== ENCOUNTER 2024-02-16 11:00 | Outpatient (CLI) | payer MEDICARE | END 2024-02-16 11:01 | disposition home or self-care (01) | LOC: CSHWCC 11:00 | PROVIDERS: ATTEND Nurse Practitioner Family | DX: I87.312 Chronic venous hypertension (idiopathic) with ulcer of left lower extremity (principal); L97.222 Non-pressure chronic ulcer of left calf with fat layer exposed; D47.3 Essential (hemorrhagic) thrombocythemia; M06.9 Rheumatoid arthritis, unspecified; L08.9 Local infection of the skin and subcutaneous tissue, unspecified | CPT/HCPCS: 11042 ==

== ENCOUNTER 2024-02-23 11:17 | Outpatient (CLI) | payer MEDICARE | END 2024-02-23 11:18 | disposition home or self-care (01) | LOC: CSHWCC 11:17 | PROVIDERS: ATTEND Nurse Practitioner Family | DX: I87.312 Chronic venous hypertension (idiopathic) with ulcer of left lower extremity (principal); L97.222 Non-pressure chronic ulcer of left calf with fat layer exposed; D47.3 Essential (hemorrhagic) thrombocythemia; M06.9 Rheumatoid arthritis, unspecified | CPT/HCPCS: 11042 ==

== ENCOUNTER 2024-03-01 10:57 | Outpatient (CLI) | payer MEDICARE | END 2024-03-01 10:58 | disposition home or self-care (01) | LOC: CSHWCC 10:57 | PROVIDERS: ATTEND Nurse Practitioner Family | DX: I87.312 Chronic venous hypertension (idiopathic) with ulcer of left lower extremity (principal); L97.222 Non-pressure chronic ulcer of left calf with fat layer exposed; D47.3 Essential (hemorrhagic) thrombocythemia; M06.9 Rheumatoid arthritis, unspecified | CPT/HCPCS: 11042 ==

== ENCOUNTER 2024-03-08 11:17 | Outpatient (CLI) | payer MEDICARE | END 2024-03-08 11:18 | disposition home or self-care (01) | LOC: CSHWCC 11:17 | PROVIDERS: ATTEND Nurse Practitioner Family | DX: I87.312 Chronic venous hypertension (idiopathic) with ulcer of left lower extremity (principal); L97.222 Non-pressure chronic ulcer of left calf with fat layer exposed; D47.3 Essential (hemorrhagic) thrombocythemia; M06.9 Rheumatoid arthritis, unspecified | CPT/HCPCS: 11042 ==

== ENCOUNTER 2024-03-15 14:20 | Outpatient (CLI) | payer MEDICARE | END 2024-03-15 14:21 | disposition home or self-care (01) | LOC: CSHWCC 14:20 | PROVIDERS: ATTEND Nurse Practitioner Family | DX: I87.312 Chronic venous hypertension (idiopathic) with ulcer of left lower extremity (principal); L97.222 Non-pressure chronic ulcer of left calf with fat layer exposed; D47.3 Essential (hemorrhagic) thrombocythemia; M06.9 Rheumatoid arthritis, unspecified | CPT/HCPCS: 11042 ==

== ENCOUNTER 2024-03-22 10:28 | Outpatient (CLI) | payer MEDICARE | END 2024-03-22 10:29 | disposition home or self-care (01) | LOC: CSHWCC 10:28 | PROVIDERS: ATTEND Nurse Practitioner Family | DX: I87.312 Chronic venous hypertension (idiopathic) with ulcer of left lower extremity (principal); L97.222 Non-pressure chronic ulcer of left calf with fat layer exposed; D47.3 Essential (hemorrhagic) thrombocythemia; M06.9 Rheumatoid arthritis, unspecified | CPT/HCPCS: 11042; 87070; 87077; 87186; 87205; 99212; G0463 ==

== ENCOUNTER 2024-03-29 11:34 | Outpatient (CLI) | payer MEDICARE | END 2024-03-29 11:35 | disposition home or self-care (01) | LOC: CSHWCC 11:34 | PROVIDERS: ATTEND Nurse Practitioner Family | DX: I87.312 Chronic venous hypertension (idiopathic) with ulcer of left lower extremity (principal); L97.222 Non-pressure chronic ulcer of left calf with fat layer exposed; D47.3 Essential (hemorrhagic) thrombocythemia; M06.9 Rheumatoid arthritis, unspecified | CPT/HCPCS: 11042 ==

== ENCOUNTER 2024-04-12 12:40 | Outpatient (CLI) | payer MEDICARE | END 2024-04-12 12:41 | disposition home or self-care (01) | LOC: CSHWCC 12:40 | PROVIDERS: ATTEND Pediatrics Pediatric Infectious Diseases | DX: I87.312 Chronic venous hypertension (idiopathic) with ulcer of left lower extremity (principal); L97.222 Non-pressure chronic ulcer of left calf with fat layer exposed; D47.3 Essential (hemorrhagic) thrombocythemia; M06.9 Rheumatoid arthritis, unspecified | CPT/HCPCS: 11042; G0463; 99213 ==

== ENCOUNTER 2024-04-21 09:48 | Outpatient (CLI) | payer MEDICARE | END 2024-04-21 09:49 | disposition home or self-care (01) | LOC: CSHWCC 09:48 | PROVIDERS: ATTEND Nurse Practitioner Family | DX: I87.312 Chronic venous hypertension (idiopathic) with ulcer of left lower extremity (principal); L97.222 Non-pressure chronic ulcer of left calf with fat layer exposed; D47.3 Essential (hemorrhagic) thrombocythemia; M06.9 Rheumatoid arthritis, unspecified ==

== ENCOUNTER 2024-04-28 10:45 | Outpatient (CLI) | payer MEDICARE | END 2024-04-28 10:46 | disposition home or self-care (01) | LOC: CSHWCC 10:45 | PROVIDERS: ATTEND Nurse Practitioner Family | DX: I87.312 Chronic venous hypertension (idiopathic) with ulcer of left lower extremity (principal); L97.222 Non-pressure chronic ulcer of left calf with fat layer exposed; D47.3 Essential (hemorrhagic) thrombocythemia; M06.9 Rheumatoid arthritis, unspecified | CPT/HCPCS: 11042 ==

== ENCOUNTER 2024-05-05 14:37 | Outpatient (CLI) | payer MEDICARE | END 2024-05-05 14:38 | disposition home or self-care (01) | LOC: CSHWCC 14:37 | PROVIDERS: ATTEND Nurse Practitioner Family | DX: I87.312 Chronic venous hypertension (idiopathic) with ulcer of left lower extremity (principal); L97.222 Non-pressure chronic ulcer of left calf with fat layer exposed; D47.3 Essential (hemorrhagic) thrombocythemia; M06.9 Rheumatoid arthritis, unspecified | CPT/HCPCS: 11042 ==

== ENCOUNTER 2024-05-19 10:33 | Outpatient (CLI) | payer MEDICARE | END 2024-05-19 10:34 | disposition home or self-care (01) | LOC: CSHWCC 10:33 | PROVIDERS: ATTEND Nurse Practitioner Family | DX: I87.312 Chronic venous hypertension (idiopathic) with ulcer of left lower extremity (principal); L97.222 Non-pressure chronic ulcer of left calf with fat layer exposed; D47.3 Essential (hemorrhagic) thrombocythemia; M06.9 Rheumatoid arthritis, unspecified | CPT/HCPCS: 11042; 11045 ==

== ENCOUNTER 2024-10-10 13:21 | Outpatient (CLI) | payer MEDICARE | END 2024-10-10 13:22 | disposition home or self-care (01) | LOC: CSHWCC 13:21 | PROVIDERS: ATTEND Nurse Practitioner Family | DX: I87.312 Chronic venous hypertension (idiopathic) with ulcer of left lower extremity (principal); L97.222 Non-pressure chronic ulcer of left calf with fat layer exposed; D47.3 Essential (hemorrhagic) thrombocythemia; M06.9 Rheumatoid arthritis, unspecified | CPT/HCPCS: 15271; Q4133 ==

== ENCOUNTER 2024-11-07 09:57 | Outpatient (CLI) | payer MEDICARE | END 2024-11-07 09:58 | disposition home or self-care (01) | LOC: CSHWCC 09:57 | PROVIDERS: ATTEND Nurse Practitioner Family | DX: I87.312 Chronic venous hypertension (idiopathic) with ulcer of left lower extremity (principal); L97.222 Non-pressure chronic ulcer of left calf with fat layer exposed; D47.3 Essential (hemorrhagic) thrombocythemia; M06.9 Rheumatoid arthritis, unspecified | CPT/HCPCS: 11042; G0463; 99213 ==

== ENCOUNTER 2024-11-11 12:49 | Outpatient (CLI) | payer MEDICARE | END 2024-11-11 12:50 | disposition home or self-care (01) | LOC: CSHMAMMO 12:49 | PROVIDERS: ATTEND Internal Medicine | DX: Z12.31 Encounter for screening mammogram for malignant neoplasm of breast (principal); Z91.89 Other specified personal risk factors, not elsewhere classified | CPT/HCPCS: 77063; 77067 ==

== ENCOUNTER 2024-11-15 09:57 | Outpatient (CLI) | payer MEDICARE | END 2024-11-15 09:58 | disposition home or self-care (01) | LOC: CSHWCC 09:57 | PROVIDERS: ATTEND Nurse Practitioner Family | DX: I87.312 Chronic venous hypertension (idiopathic) with ulcer of left lower extremity (principal); L97.222 Non-pressure chronic ulcer of left calf with fat layer exposed; D47.3 Essential (hemorrhagic) thrombocythemia; M06.9 Rheumatoid arthritis, unspecified | CPT/HCPCS: 11042 ==

== ENCOUNTER 2024-11-22 11:57 | Outpatient (CLI) | payer MEDICARE | END 2024-11-22 11:58 | disposition home or self-care (01) | LOC: CSHWCC 11:57 | PROVIDERS: ATTEND Nurse Practitioner Family | DX: I87.312 Chronic venous hypertension (idiopathic) with ulcer of left lower extremity (principal); L97.222 Non-pressure chronic ulcer of left calf with fat layer exposed; D47.3 Essential (hemorrhagic) thrombocythemia; M06.9 Rheumatoid arthritis, unspecified | CPT/HCPCS: 11042 ==

== ENCOUNTER 2024-11-28 10:33 | Outpatient (CLI) | payer MEDICARE | END 2024-11-28 10:34 | disposition home or self-care (01) | LOC: CSHWCC 10:33 | PROVIDERS: ATTEND Nurse Practitioner Family | DX: I87.312 Chronic venous hypertension (idiopathic) with ulcer of left lower extremity (principal); L97.222 Non-pressure chronic ulcer of left calf with fat layer exposed; D47.3 Essential (hemorrhagic) thrombocythemia; M06.9 Rheumatoid arthritis, unspecified | CPT/HCPCS: 11042; 87070; 87077; 87186; 87205; 99212; G0463 ==

== ENCOUNTER 2024-12-05 09:56 | Outpatient (CLI) | payer MEDICARE | END 2024-12-05 09:57 | disposition home or self-care (01) | LOC: CSHWCC 09:56 | PROVIDERS: ATTEND Nurse Practitioner Family | DX: I87.312 Chronic venous hypertension (idiopathic) with ulcer of left lower extremity (principal); L97.222 Non-pressure chronic ulcer of left calf with fat layer exposed; D47.3 Essential (hemorrhagic) thrombocythemia; M06.9 Rheumatoid arthritis, unspecified ==

== ENCOUNTER 2024-12-13 14:14 | Outpatient (CLI) | payer MEDICARE | END 2024-12-13 14:15 | disposition home or self-care (01) | LOC: CSHWCC 14:14 | PROVIDERS: ATTEND Nurse Practitioner Family | DX: I87.312 Chronic venous hypertension (idiopathic) with ulcer of left lower extremity (principal); L97.222 Non-pressure chronic ulcer of left calf with fat layer exposed; D47.3 Essential (hemorrhagic) thrombocythemia; M06.9 Rheumatoid arthritis, unspecified; L08.9 Local infection of the skin and subcutaneous tissue, unspecified | CPT/HCPCS: 11042; G0463; 99213 ==

== ENCOUNTER 2024-12-19 13:58 | Outpatient (CLI) | payer MEDICARE | END 2024-12-19 13:59 | disposition home or self-care (01) | LOC: CSHWCC 13:58 | PROVIDERS: ATTEND Nurse Practitioner Family | DX: I87.312 Chronic venous hypertension (idiopathic) with ulcer of left lower extremity (principal); L97.222 Non-pressure chronic ulcer of left calf with fat layer exposed; D47.3 Essential (hemorrhagic) thrombocythemia; M06.9 Rheumatoid arthritis, unspecified; L08.9 Local infection of the skin and subcutaneous tissue, unspecified | CPT/HCPCS: 11042 ==

== ENCOUNTER 2024-12-26 10:54 | Outpatient (CLI) | payer MEDICARE | END 2024-12-26 10:55 | disposition home or self-care (01) | LOC: CSHWCC 10:54 | PROVIDERS: ATTEND Nurse Practitioner Family | DX: I87.312 Chronic venous hypertension (idiopathic) with ulcer of left lower extremity (principal); L97.222 Non-pressure chronic ulcer of left calf with fat layer exposed; D47.3 Essential (hemorrhagic) thrombocythemia; M06.9 Rheumatoid arthritis, unspecified; L08.9 Local infection of the skin and subcutaneous tissue, unspecified | CPT/HCPCS: 11042 ==

== ENCOUNTER 2025-01-02 10:20 | Outpatient (CLI) | payer MEDICARE | END 2025-01-02 10:21 | disposition home or self-care (01) | LOC: CSHWCC 10:20 | PROVIDERS: ATTEND Nurse Practitioner Family | DX: I87.312 Chronic venous hypertension (idiopathic) with ulcer of left lower extremity (principal); L97.222 Non-pressure chronic ulcer of left calf with fat layer exposed; D47.3 Essential (hemorrhagic) thrombocythemia; M06.9 Rheumatoid arthritis, unspecified | CPT/HCPCS: 11042 ==

== ENCOUNTER 2025-01-23 10:50 | Outpatient (CLI) | payer MEDICARE | END 2025-01-23 10:51 | disposition home or self-care (01) | LOC: CSHWCC 10:50 | PROVIDERS: ATTEND Nurse Practitioner Family | DX: I87.312 Chronic venous hypertension (idiopathic) with ulcer of left lower extremity (principal); L97.222 Non-pressure chronic ulcer of left calf with fat layer exposed; D47.3 Essential (hemorrhagic) thrombocythemia; M06.9 Rheumatoid arthritis, unspecified | CPT/HCPCS: 97597 ==

== ENCOUNTER 2025-01-30 11:39 | Outpatient (CLI) | payer MEDICARE | END 2025-01-30 11:40 | disposition home or self-care (01) | LOC: CSHWCC 11:39 | PROVIDERS: ATTEND Nurse Practitioner Family | DX: I87.312 Chronic venous hypertension (idiopathic) with ulcer of left lower extremity (principal); L97.222 Non-pressure chronic ulcer of left calf with fat layer exposed; D47.3 Essential (hemorrhagic) thrombocythemia; M06.9 Rheumatoid arthritis, unspecified | CPT/HCPCS: 97597 ==

== ENCOUNTER 2025-02-06 11:09 | Outpatient (CLI) | payer MEDICARE | END 2025-02-06 11:10 | disposition home or self-care (01) | LOC: CSHWCC 11:09 | PROVIDERS: ATTEND Nurse Practitioner Family | DX: I87.312 Chronic venous hypertension (idiopathic) with ulcer of left lower extremity (principal); L97.222 Non-pressure chronic ulcer of left calf with fat layer exposed; D47.3 Essential (hemorrhagic) thrombocythemia; M06.9 Rheumatoid arthritis, unspecified | CPT/HCPCS: 29581; G0463; 99212 ==